=== PATIENT | male | born 1945 | race Asian ===

== ENCOUNTER 2024-04-04 11:15 | Emergency (ER) | payer MEDICARE, BC, SELFPAY ==
[2024-04-04 11:46] VITALS: BP 120/74; PULSE 66; RESP 18; TEMP 36.5; O2SAT 99; BMI 25.8
--- NOTE | 2024-04-04 11:59 | ED_ITS ---
HPI - Extremity Injury (Upper) <Holland Thompson PA-C - Last Filed: 04/04/24 18:23> General Chief Complaint: Extremity Injury, Upper Stated Complaint: r finger injury doesn't bend Time Seen by Provider: 04/04/24 11:58 Source: patient Mode of arrival: Ambulatory History of Present Illness HPI narrative: 79-year-old male with past medical history diabetes, CAD, status post cardiac stents 2 years ago, hypertension presents to the ED status post a dog bite from his puppy sustained yesterday at 6:00 am. The dog bite was sustained to the base of the index finger on the palmar aspect of the right hand. Patient states that following the dog bite, he washed the hand out with soap and water and proceeded to do some work on leather which involved a lot of effort from his right hand. Patient states that his pain has worsened since then and this morning, patient noted a erythematous, swollen right index finger, states that it feels very stiff and he is unable to flex it. He endorses pain with flexion and extension. No numbness, tingling, weakness, fever, chills, nausea, vomiting. Last tetanus in 2022. Related Data Home Medications Medication Instructions Recorded Confirmed alendronate 70 mg tablet 70 mg PO 04/04/24 04/04/24 atorvastatin 80 mg tablet 80 mg PO DAILY 04/04/24 04/04/24 empagliflozin 10 mg tablet 10 mg PO DAILY 04/04/24 04/04/24 (Jardiance) ezetimibe 10 mg tablet 10 mg PO DAILY 04/04/24 04/04/24 icosapent ethyl 1 gram capsule 2 g PO BID 04/04/24 04/04/24 losartan 25 mg tablet 25 mg PO DAILY 04/04/24 04/04/24 metoprolol succinate 25 mg 25 mg PO DAILY 04/04/24 04/04/24 tablet,extended release 24 hr semaglutide 0.25 mg or 0.5 mg (2 mg SUBCUT 04/04/24 04/04/24 mg/3 mL) subcutaneous pen injector (Ozempic) ticagrelor 90 mg tablet (Brilinta) 90 mg PO BID 04/04/24 04/04/24 Previous Rx's Medication Instructions Recorded amoxicillin 875 mg-potassium 1 tab PO Q12H 10 days #20 tabs 04/04/24 clavulanate 125 mg tablet Allergies Allergy/AdvReac Type Severity Reaction Status Date / Time No Known Drug Allergies Allergy Unverified 04/04/24 11:01 Review of Systems <Holland Thompson PA-C - Last Filed: 04/04/24 18:23> Constitutional Constitutional: Denies chills, Denies fatigue, Denies fever(s), Denies frequent falls, Denies lethargy and Denies weakness Eyes Eyes: Denies change in vision, Denies eye discharge, Denies irritation and Denies loss of vision ENT Ears, Nose, Mouth, and Throat: Denies change in voice, Denies dizziness, Denies neck pain, Denies sore throat and Denies throat swelling Cardiovascular Cardiovascular: Denies chest pain, Denies irregular heart rhythm, Denies lightheadedness, Denies palpitations, Denies dyspnea, Denies dyspnea on exertion and Denies orthopnea Respiratory Respiratory: Denies cough, Denies dyspnea, Denies dyspnea on exertion and Denies wheezing Gastrointestinal Gastrointestinal: Denies abdominal pain, Denies change in bowel habits, Denies diarrhea, Denies nausea and Denies vomiting Musculoskeletal Musculoskeletal: Denies neck pain and Denies numbness Integumentary/Breasts Skin/Breast: Denies pruritus, Denies erythema, Denies rash and Denies wounds Comments: R index finger swelling, pain Neurologic Neurologic: Denies behavioral changes, Denies confusion, Denies dizziness, Denies frequent falls, Denies loss of vision, Denies numbness and Denies weakness Psychiatric Psychiatric: Denies anxiety, Denies behavioral changes, Denies confusion, Denies depression, Denies homicidal ideation and Denies suicidal ideation Endocrine Endocrine: Denies fatigue, Denies flushing and Denies palpitations Hematologic/Lymphatic Hematologic/Lymphatic: Denies easy bruising Allergic/Immunologic Allergic/Immunologic: Denies urticaria, Denies throat swelling and Denies wheezing Patient History <Holland Thompson PA-C - Last Filed: 04/04/24 18:23> Social History Smoking Status: Never smoker Smoking Status: Never smoker alcohol intake frequency: a few times a week Alcohol type: beer and wine Substance Use Type: does not use Exam <Holland Thompson PA-C - Last Filed: 04/04/24 18:23> Narrative Exam Narrative: Const General:?cooperative, healthy appearing and comfortable [facility] Head:?normal to inspection Ears:?hearing grossly normal bilaterally Nose:?external nose normal Face and sinus:?normal facial exam and sinuses nontender Mouth:?oral mucosae normal Throat:?posterior oropharynx normal Eyes General:?appearance normal, both eyes and all related structures Neck Neck:?normal visual inspection and no lymphadenopathy noted Resp Effort & Inspection:?normal respiratory effort Auscultation:?clear to auscultation bilaterally Cardio Rate:?regular rate Rhythm:?regular rhythm Integumentary/musculoskeletal There is significant swelling of the right index finger extending throughout the entire digit down into the palm. There is a puncture wound noted on the palmar aspect. Sensation is intact. There is tenderness along the flexor tendon as well as the extensor tendon. Patient endorses pain on passive extension as well as flexion. The finger is not noted to be held in flexion. Pulses intact. Cap refill less than 2 seconds. Neurovascularly intact. Compartments soft. Neuro General:?patient alert, patient awake and patient oriented x3 Initial Vital Signs Initial Vital Signs: Vital Signs Temperature 97.7 F 04/04/24 11:46 Pulse Rate 66 04/04/24 11:46 Respiratory Rate 18 04/04/24 11:46 Blood Pressure 120/74 04/04/24 11:46 Pulse Oximetry 99 04/04/24 11:46 Oxygen Delivery Method Room Air 04/04/24 11:46 <Vannessa Mendieta DO - Last Filed: 04/04/24 18:47> Initial Vital Signs Initial Vital Signs: Vital Signs Temperature 97.7 F 04/04/24 11:46 Pulse Rate 66 04/04/24 11:46 Respiratory Rate 18 04/04/24 11:46 Blood Pressure 120/74 04/04/24 11:46 Pulse Oximetry 99 04/04/24 11:46 Oxygen Delivery Method Room Air 04/04/24 11:46 Course <Holland Thompson PA-C - Last Filed: 04/04/24 18:23> Orders Ordered: ED Orders 04/04/24 12:19 XR hand RT min 3V Stat Discontinued Medications Amoxicillin/Clavulanate Potassium (Amoxicillin/Clav 875/125 Mg) 1 tab PO NOW ONE Stop: 04/04/24 14:43 Last Admin: 04/04/24 14:52 Dose: 1 tab Documented By: Vital Signs Vital signs: Vital Signs - 8 hr 04/04/24 11:46 04/04/24 14:54 Temperature 97.7 F Pulse Rate 66 70 Respiratory Rate 18 16 Blood Pressure 120/74 132/77 Pulse Oximetry 99 100 Oxygen Delivery Method Room Air Room Air <Vannessa Mendieta DO - Last Filed: 04/04/24 18:47> Orders Ordered: ED Orders 04/04/24 12:19 XR hand RT min 3V Stat Discontinued Medications Amoxicillin/Clavulanate Potassium (Amoxicillin/Clav 875/125 Mg) 1 tab PO NOW ONE Stop: 04/04/24 14:43 Last Admin: 04/04/24 14:52 Dose: 1 tab Documented By: Vital Signs Vital signs: Vital Signs - 8 hr 04/04/24 11:46 04/04/24 14:54 Temperature 97.7 F Pulse Rate 66 70 Respiratory Rate 18 16 Blood Pressure 120/74 132/77 Pulse Oximetry 99 100 Oxygen Delivery Method Room Air Room Air MDM - Extremity Injury (Upper) <Holland Thompson PA-C - Last Filed: 04/04/24 18:23> MDM Narrative Medical decision making narrative: 79-year-old male with past medical history diabetes, CAD, status post cardiac stents 2 years ago, hypertension presents to the ED status post a dog bite sustained yesterday at 6:00 am. Concern for cellulitis versus fracture versus foreign body versus flexor tenosynovitis versus other. X-ray was obtained without acute findings. Dr. Mendieta, ED attending consulted, she examined the p atient and also consulted ortho specialist Dr. Valencia. Plan is to start patient on Augmentin, have patient follow-up in the ED for a wound check in 24 hours tomorrow. First dose of Augmentin given in the ED. Images will be been shared with Dr. Lopez who will be the ED attending tomorrow. Discussed plan with patient as well as ED return precautions. Patient verbalized understanding. Medical records reviewed: Yes Anam: Patient history of hypertension, dyslipidemia diabetes type 2 with coronary artery stents also seen and evaluated by myself. Patient has erythema of the entire 2nd finger extending over the 2nd finger of his right hand finger, does have swelling throughout, has a puncture wound on the base from his puppy from yesterday, swelling and erythema extends about a cm below the proximal joint. Was using all states that the swelling has not improved but the pain has significantly improved. Has not been on any antibiotics since the injury yesterday. Can flex and extend but is uncomfortable but not exquisitely painful. Suspect more cellulitis but discussed with patient he is risk for flexor tenosynovitis we will start on oral antibiotic I do not feel he requires inpatient admission IV antibiotics and OR today but we will have him return within 24 hours for repeat evaluation or sooner if rapidly worsening. Patient has immunizations up-to-date. Spoke with Dr. Valencia on-call for Orthopedic surgery: She is aware of patient. Did take images to share with the physician in the ED tomorrow who will be present here as neither the mid-level nor myself will be here to re- evaluate patient. Discussed we will start on Augmentin with short term follow up. <Vannessa Mendieta, DO - Last Filed: 04/04/24 18:47> [facility] Narrative Medical decision making narrative: Aanm: Patient history of hypertension, dyslipidemia diabetes type 2 with coronary artery stents also seen and evaluated by myself. Patient has erythema of the entire 2nd finger extending over the 2nd finger of his right hand finger, does have swelling throughout, has a puncture wound on the base from his puppy from yesterday, swelling and erythema extends about a cm below the proximal joint. Was using all states that the swelling has not improved but the pain has significantly improved. Has not been on any antibiotics since the injury yesterday. Can flex and extend but is uncomfortable but not exquisitely painful. Suspect more cellulitis but discussed with patient he is risk for flex or tenosynovitis we will start on oral antibiotic I do not feel he requires inpatient admission IV antibiotics and OR today but we will have him return within 24 hours for repeat evaluation or sooner if rapidly worsening. Patient has immunizations up-to-date. Spoke with Dr. Valencia on-call for Orthopedic surgery: She is aware of patient. Did take images to share with the physician in the ED tomorrow who will be present here as neither the mid-level nor myself will be here to re- evaluate patient. Discussed we will start on Augmentin with short term follow up. Discharge Plan Departure Patient Disposition: Home Clinical Impression: Dog bite Qualifiers: Encounter type: initial encounter Qualified Code(s): W54.0XXA - Bitten by dog, initial encounter Instructions: DI for Dog Bite Activity Restrictions/Additional Instructions: You were evaluated in the ED today for a dog bite. Your x-ray was normal. It appears that the bite is infected, you are being prescribed antibiotics. You were given your 1st dose in the ED. Please take the 2nd dose tonight before going to bed even if it is not 12 hours from the 1st dose. Please take your 3rd dose tomorrow morning. Please return to the ED in 24 hours for a recheck of the wound. Given that dog bites in your hand can cause serious infections such as infection of the flexor tendon in the hand, which can spread very quickly, it is important that we recheck this wound in 24 hours to reassess for improvement. Return to the ED if you have worsening symptoms such as continued swelling of the finger, fever, chills. Prescriptions: New amoxicillin-pot clavulanate 875-125 mg tablet 1 tab PO Q12H 10 Days Qty: 20 0RF No Action Ozempic 0.25 mg or 0.5 mg (2 mg/3 mL) pen injector SUBCUT Patient Comments: [NO ORIGINAL SIG] icosapent ethyl 1 gram capsule 2 g PO BID ezetimibe 10 mg tablet 10 mg PO DAILY losartan 25 mg tablet 25 mg PO DAILY Jardiance 10 mg tablet 10 mg PO DAILY alendronate 70 mg tablet 70 mg PO atorvastatin 80 mg tablet 80 mg PO DAILY Brilinta 90 mg tablet 90 mg PO BID metoprolol succinate 25 mg tablet extended release 24 hr 25 mg PO DAILY Referrals: Miscellaneous,Doctor, MD [Primary Care Provider] - Stand Alone Forms: Patient Portal/API
--- NOTE | 2024-04-04 12:19 | DI.RAD.S_ITS ---
PROCEDURE: XR HAND RT MIN 3V INDICATIONS: palmar dog bite at base of 2nd digit TECHNIQUE: 3 views of the hand(s) acquired. COMPARISON: None. FINDINGS: Bones: No fractures or dislocations. Carpal bones are normally aligned. No suspicious bony lesions. Soft tissues: No suspicious soft tissue calcifications. No radiopaque foreign body. IMPRESSION: No fracture or radiopaque foreign body. Dictated by: Francisco Javier Hewitt M.D. on 04/04/2024 at 12:51 Approved by: Francisco Javier Hewitt M.D. on 04/04/2024 at 12:52
[2024-04-04] MEDS: AMOXICILLIN/CLAV 875/125 MG 1 TAB PO (14:52)
[2024-04-04 14:54] VITALS: BP 132/77; PULSE 70; RESP 16; O2SAT 100
== END 2024-04-04 14:54 | disposition home or self-care (01) ==
PROVIDERS: Emergency Provider Student in an Organized Health Care Education/Training Program
DX: S61.250A Open bite of right index finger without damage to nail, initial encounter (principal); W54.0XXA Bitten by dog, initial encounter
CPT/HCPCS: 73130; 99283

== ENCOUNTER 2024-04-05 15:11 | Emergency (ER) | payer MEDICARE, BC, SELFPAY ==
[2024-04-05 15:59] VITALS: BP 116/67; PULSE 66; RESP 16; TEMP 36.9; O2SAT 99; BMI 25.8
== END 2024-04-05 19:00 | disposition left against medical advice (07) ==
PROVIDERS: Emergency Provider Emergency Medicine
CPT/HCPCS: 99281